=== PATIENT | female | born 1940 | race Caucasian/White ===

== ENCOUNTER → 2018-11-07 | Outpatient (CLI) | payer MEDICARE, BC ==
--- NOTE | 2018-11-08 07:53 | MM ---
Reason for exam: screening (asymptomatic). Last mammogram was performed 2 years and 4 months ago. History: Patient is postmenopausal. 2 benign excisional biopsies of the right breast. Took estrogen for 15 years beginning at age 52. Taking other hormone for 4 years 1 month beginning at age 62. Physical Findings: A clinical breast exam by your physician is recommended on an annual basis and results should be correlated with mammographic findings. MG Screening Mammo w CAD Bilateral CC and MLO view(s) were taken. Prior study comparison: July 15, 2016, bilateral MG 3d screening mammo w/cad. May 29, 2014, bilateral MG screening mammo w CAD. The breast tissue is heterogeneously dense. This may lower the sensitivity of mammography. There is no discrete abnormality. No significant changes when compared with prior studies. ASSESSMENT: Negative, BI-RAD 1 RECOMMENDATION: Routine screening mammogram of both breasts in 1 year.
== END | disposition home or self-care (01) ==
LOC: RADMAMWWP 09:54
PROVIDERS: ATTEND Internal Medicine
DX: Z12.31 Encounter for screening mammogram for malignant neoplasm of breast (principal)
CPT/HCPCS: 77067

== ENCOUNTER 2022-05-15 03:54 | Emergency (ER) | payer MEDICARE ==
[2022-05-15 04:29] VITALS: TEMP 98.6
[2022-05-15] MEDS ORDERED: KETOROLAC 15 MG/ML 1 ML VIAL IVP STA (04:42)
[2022-05-15] MEDS ORDERED: MORPHINE SULFATE 2 MG/ML SYRINGE IVP STA (04:42)
[2022-05-15] MEDS ORDERED: LIDOCAINE 1% INJ 10MG/ML (20 ML MDV) SQ ONE (05:04)
--- NOTE | 2022-05-15 05:30 | XR ---
EXAMINATION TYPE: XR wrist limited LT DATE OF EXAM: 05/15/2022 COMPARISON: NONE HISTORY: 2 views TECHNIQUE: 2 views FINDINGS: There is an acute impacted transverse fracture of the distal radius. There is osteopenia. N o dislocation. Metacarpals are intact. IMPRESSION: Acute impacted distal radius fracture.
[2022-05-15 06:22] VITALS: RESP 16
--- NOTE | 2022-05-15 06:33 | ED ---
General Adult HPI - General Chief complaint: Extremity Injury, Upper Stated complaint: Wrist Injury Time Seen by Provider: 05/15/22 04:25 Source: patient, RN notes reviewed, old records reviewed Mode of arrival: ambulatory Limitations: no limitations - History of Present Illness Initial comments: 81-year-old female presents status post fall. Patient had gotten up to shocked a door in the middle the night, she had tripped and fallen onto outstretched hand onto the left wrist. She is right handed. There is no head or neck trauma. No other injury. - Related Data Previous Rx's Medication Instructions Recorded HYDROcodone/APAP 5-325MG [[place] 1 tab PO Q6HR PRN #12 tab 05/15/22 5-325] Allergies Allergy/AdvReac Type Severity Reaction Status Date / Time Penicillins AdvReac Unknown Verified 05/15/22 04:30 Sulfa (Sulfonamide AdvReac Unknown Verified 05/15/22 04:30 Antibiotics) Childhood methiolate AdvReac Unknown Uncoded 05/15/22 04:30 Review of Systems ROS Statement: Those systems with pertinent positive or pertinent negative responses have been documented in the HPI. ROS Other: All systems not noted in ROS Statement are negative. Past Medical History Past Medical History: Thyroid Disorder Additional Past Medical History / Comment(s): tremors History of Any Multi-Drug Resistant Organisms: None Reported Past Surgical History: Section Past Psychological History: No Psychological Hx Reported Smoking Status: Never smoker Past Alcohol Use History: None Reported Past Drug Use History: None Reported General Exam General appearance: alert, in no apparent distress Head exam: Present: atraumatic, normocephalic Eye exam: Present: normal appearance, PERRL Respiratory exam: Present: normal lung sounds bilaterally. Absent: respiratory distress, wheezes Cardiovascular Exam: Present: regular rate, normal rhythm GI/Abdominal exam: Present: soft. Absent: distended, tenderness Extremities exam: Present: joint swelling (Deformity, ecchymosis to the left wrist, distal cap refill is intact, 2+ radial pulse, range of motion of the digits is within normal limits.) Neurological exam: Present: alert, oriented X3, CN II-XII intact Course Vital Signs 05/15/22 05/15/22 04:24 06:20 Temperature 98.6 F Pulse Rate 67 71 Respiratory 18 16 Rate Blood Pressure 127/89 O2 Sat by Pulse 98 94 L Oximetry Procedures - Orthopedic Fracture Reduction Fracture #1 Consent Obtained: verbal consent Side: left Fracture Reduction Location: radius Analgesia: hematoma block Technique: direct manipulation Post Reduction X-rays Demonstrate: acceptable reduction Post-Reduction Neuro Exam: intact Post-Reduction Vascular Exam: intact Splint Applied: Yes Patient Tolerated Procedure: well Medical Decision Making - Medical Decision Making 81-year-old female with mechanical fall, left wrist fracture. Significant deformity on exam, x-ray showing an impacted distal radius fracture. I was able to place the patient in a finger trap and provide pain medication. This did allow for significant improvement in alignment. She was placed in a splint and given orthopedic follow-up. She will call first thing in the morning. She will elevate and ice the wrist. Disposition Clinical Impression: Distal radial fracture Disposition: HOME SELF-CARE Condition: Fair Instructions (If sedation given, give patient instructions): Wrist Fracture in Adults (ED) Prescriptions: HYDROcodone/APAP 5-325MG [[place] 5-325] 1 tab PO Q6HR PRN #12 tab PRN Reason: Pain Is patient prescribed a controlled substance at d/c from ED?: No Referrals: Acacia Velazquez NPC [Primary Care Provider] - 1-2 days Jair Jones DO [Doctor of Osteopathic Medicine] - 1-2 days Time of Disposition: 06:32
--- NOTE | 2022-05-15 06:45 | XR ---
EXAMINATION TYPE: XR wrist limited LT DATE OF EXAM: 05/15/2022 COMPARISON: Today HISTORY: Post reduction TECHNIQUE: 2 views FINDINGS: 2 views were obtained through the cast and show reasonable anatomic reduction of the impact ed distal radius fracture. There is fairly good alignment. There is mild posterior displacement of th e distal radial fragment. There is ulnar styloid process fracture. IMPRESSION: Satisfactory reduction. No complicating process seen.
[2022-05-15 06:48] VITALS: BP 105/56; PULSE 72
== END 2022-05-15 07:05 | disposition home or self-care (01) ==
LOC: EC 03:54
DX: S52.512A Displaced fracture of left radial styloid process, initial encounter for closed fracture (principal); S52.502A Unspecified fracture of the lower end of left radius, initial encounter for closed fracture; Z88.8 Allergy status to other drugs, medicaments and biological substances; Z88.0 Allergy status to penicillin; Z88.2 Allergy status to sulfonamides; W01.0XXA Fall on same level from slipping, tripping and stumbling without subsequent striking against object, initial encounter
CPT/HCPCS: 73100; 99283; 25605; 96374; 96375; J2001; J2270; J1885

== ENCOUNTER → 2022-05-16 | Outpatient (CLI) | payer MEDICARE ==
[2022-05-16 15:54] LABS: Basophils # (A) 0.06 X 10*3/uL (0.00-0.10); Basophils % (A) 0.9 %; Eosinophils # (A) 0.09 X 10*3/uL (0.04-0.35); Eosinophils % (A) 1.4 %; HCT 40.4 % (37.2-46.3); HGB 13.4 g/dL (12.0-15.0); Immature Grans, Automated 0.2 %; Lymphocytes # (A) 1.33 X 10*3/uL (0.90-5.00); Lymphocytes % (A) 20.5 %; MCHC 33.2 g/dL (32.0-37.0); MCV 90.6 fL (80.0-97.0); Mean Platelet Volume 9.5 fL (9.5-12.2); Monocytes # (A) 0.48 X 10*3/uL (0.20-1.00); Monocytes % (A) 7.4 %; NRBC Per 100 WBC 0 /100 WBCS (0.0-0.0); Neutrophils # (A) 4.53 X 10*3/uL (1.80-7.70); Neutrophils % (A) 69.6 %; Platelet Count 263 X 10*3/uL (140-440); RBC 4.46 X 10*6/uL (4.10-5.20); RDW 12.9 % (11.5-14.5)
[2022-05-16 16:10] LABS: Anion Gap 10.8 mmol/L (10.00-18.00); Carbon Dioxide 25.8 mmol/L (20.0-27.5); Potassium 4.8 mmol/L (3.5-5.5)
== END | disposition home or self-care (01) ==
LOC: LABPAT 09:41
PROVIDERS: ATTEND Orthopaedic Surgery Hand Surgery
DX: Z01.812 Encounter for preprocedural laboratory examination (principal)
CPT/HCPCS: 80051; 85025; 93005

== ENCOUNTER 2022-05-21 09:46 | Day surgery (SDC) | payer MEDICARE ==
--- NOTE | 2022-05-20 22:04 | P.HPOR ---
History of Present Illness H&P Date: 05/20/22 Chief Complaint: Left distal radius fracture Subjective: This is a 81 year old female that presents today for initial evaluation regarding a left wrist injury that occurred when she fell on her porch after looking after her farm animals. She had pain and swelling immediately after and deformity. She was seen in the ED and placed in a splint. She has had pain since. Her injury was this morning on 05/15/22. She has some occasional paresthesias in the digits but states it is improving. Physical Examination: LUE: AIN/PIN/Radial/Ulnar/Median motor intact. Radial/Ulnar/Median SILT. 2+/4 Radial/Ulnar pulses palpated. 5/5 APB, 5/5 FDI. Negative Finkelsteins, negative CMC grind, negative Durkan's compression. Marked deformity of wrist with wrist held in extension with bruising/swelling present. EPL/FPL intact. Imaging: X-Rays of the left wrist demonstrate left intra-articular distal radius fracture with 45 degrees of dorsal angulation. Impression: 1.) Left intra-articular distal radius fracture, greater than 3 parts. Plan: Diagnosis and treatment options were discussed with the patient. We discussed at her age non operative treatment could be considered for her distal radius however she states due to her continued high activity demands and independence she would like to pursue surgery which I am agreeable with considering the amount of displacement and instability of the fracture. Risks and benefits of surgery including bleeding, infection, damage to surrounding tissue, need for further surgery, residual numbness were discussed and the patient wished to go forward with surgery. Left distal radius fracture ORIF is schedule for the near future, new splint is applied, PCP clearance is requested. -Jair Jones DO Orthopedic Hand/Upper Extremity Surgeon Past Medical History Past Medical History: Thyroid Disorder Additional Past Medical History / Comment(s): tremors History of Any Multi-Drug Resistant Organisms: None Reported Past Surgical History: Section Past Anesthesia/Blood Transfusion Reactions: No Reported Reaction Smoking Status: Never smoker Medications and Allergies Home Medications Medication Instructions Recorded Confirmed Type HYDROcodone/APAP 5-325MG [[place] 1 tab PO Q6HR PRN #12 tab 05/15/22 05/18/22 Rx 5-325] Fluticasone Nasal [place] [Flonase 50 mcg INHALATION DAILY PRN 05/18/22 05/18/22 History Nasal [place]] Propranolol [Inderal] 30 mg PO BID 05/18/22 05/18/22 History Thyroid,Pork [[place] Thyroid] 15 mg PO DAILY 05/18/22 05/18/22 History Thyroid,Pork [[place] Thyroid] 60 mg PO DAILY 05/18/22 05/18/22 History Allergies Allergy/AdvReac Type Severity Reaction Status Date / Time Penicillins AdvReac Severe Rash/Hives Verified 05/18/22 14:15 Sulfa (Sulfonamide AdvReac Unknown Unknown Verified 05/18/22 14:15 Antibiotics) Childhood methiolate AdvReac Unknown Unknown Uncoded 05/18/22 14:15 Physical Examination Osteopathic Statement: *. No significant issues noted on an osteopathic structural exam other than those noted in the History and Physical/Consult.
[2022-05-21] MEDS ORDERED: ONDANSETRON 4 MG/2 ML VIAL IVP ONE (10:09)
[2022-05-21] MEDS ORDERED: LACTATED RINGERS 1,000 ML IV SCH (10:09)
[2022-05-21 10:23] VITALS: RESP 16; TEMP 97.2
[2022-05-21] MEDS ORDERED: LIDOCAINE 1% (10MG/ML) FOR IV START INTRADERMA ONE (10:24)
[2022-05-21] MEDS ORDERED: MIDAZOLAM 2 MG/2 ML VIAL IV ONE (10:30)
[2022-05-21] MEDS ORDERED: fentaNYL (PF) 50 MCG/ML 2 ML AMP ONE (10:55)
[2022-05-21] MEDS ORDERED: ROPIVACAINE 5 MG/ML 30 ML VIAL ONE ×2 (10:55)
[2022-05-21] MEDS ORDERED: KETAMINE 10 MG/ML 20 ML VIAL ONE (10:55)
[2022-05-21] MEDS ORDERED: DEXAMETHASONE SOD PHOSPHATE 4 MG/ML 1 ML VIAL ONE ×2 (10:55)
[2022-05-21] MEDS ORDERED: PROPOFOL 10 MG/ML 20 ML VIAL IV ONE (10:55)
[2022-05-21 12:58] VITALS: BP 126/57; PULSE 63
[2022-05-22] MEDS ORDERED: HYDROmorphone 0.5 MG/0.5 ML SYRINGE IVP PRN (07:00)
--- NOTE | 2022-05-22 07:03 | P.OP ---
Date of Procedure: 05/21/22 Preoperative Diagnosis: 1.) Left intra-articular distal radius fracture Postoperative Diagnosis: 1.) Left intra-articular distal radius fracture Procedure(s) Performed: 1.) Left intra-articular distal radius fracture open reduction internal fixation, greater than 3 parts. Implants: [place]/Biomet DVR Crosslock distal radius plate, short/narrow Anesthesia: MAC, regional Surgeon: Jair Jones Estimated Blood Loss (ml): 15 Pathology: none sent Condition: stable Disposition: PACU Description of Procedure: This is a 81 year old female who sustained a displaced intra-articular distal radius fracture and presents today for open reduction internal fixation of their left distal radius fracture. Risks and benefits of surgery were discussed with the patient including bleeding, damage to surrounding tissue, infection, need for further surgery as well as risks of anesthesia including pulmonary embolism and even and the patient wished to proceed with surgical intervention. The patients was seen in the pre-operative area by myself. Consent and H&P were completed and updated. The correct extremity was marked in the pre-operative area by myself and all other questions were answered. Operative Narrative: The patient was brought to the operating room by the department of anesthesia. They remained on the portable stretcher and a rolling hand table was brought to the side of the operative extremity. Pre-operative time out was performed indicating the correct patient, procedure and laterality. All in the room agreed. Pre-operative antibiotics were given prior to skin incision. The patient was then drifted off to sleep by the department of anesthesia. A nonsterile tourniquet was then applied to the operative extremity and the left upper extremity was then prepped and draped in normal sterile fashion. The operative extremity was the exsanguinated with an esmarch bandage and the tourniquet was inflated to 250mmHg. A longitudinal incision centered over the FCR tendon was made with a 15-blade scalpel. Blunt dissection was taken down to the FCR tendon sheath using Bovie cautery for meticulous hemostasis. The FCR sheath was opened with tenotomy scissors. The floor of the FCR sheath was then incised with a 15-blade scalpel and the FPL tendon and muscle belly was swept bluntly in an ulnar direction to reveal the pronator quadratus. Pronator quadratus was sharply incised with a 15-blade scalpel along the radial border of the distal radius, coming across transversely parallel to the joint at the level of the watershed line, radial artery was identified and protected. Due to marked radial translation of the distal fragment the brachioradialis insertion was incised taking care to protect the first dorsal compartment tendons. Periosteal elevator was then used to elevate the pronator quadratus off the distal radius from a radial to ulnar fashion. A [place] elevator was used to lever the distal piece back into place and free up the fractured fragments. A short/narrow width Sidney/biomet crosslo ck DVR plate was chosen to fit the patients anatomy best. This was placed on the distal radius under direct visualization and the K- wire was placed in the shaft k-wire hole. The fracture was then reduced to the plate distally and a k- wire was placed in the ulnar most k-wire hole in the proximal row. Fluoroscopy was then utilized to confirm correct placement of plate in the radial/ulnar plane and distal k-wire placement was confirmed to be proximal to the subchondral bone on 20 degree elevated lateral view confirming extra-articular screw placement. Scientologist of radial height, inclination and volar tilt was achieved. The oblong hole was drilled and filled with a cortical screw. The proximal row and radial styloid screw hole was then drilled and filled from ulnar to radial with locking screws. Distal row was then drilled and filled with locking smooth pegs. Attention was then brought to the proximal shaft screws. Proximal crosslocking shaft screws were drilled with a nonlocking screws. The wrist joint was the ranged and full smooth flexion/extension with no crepitus appreciated. Final imaging was taken confirming extra-articular placement of distal screws at DRUJ and radiocarpal joint. The wound was then irrigated. Subcutaneous closure was performed with 3-0 vicryl followed by skin closure with 4-0 nylon suture. Sterile dressing consisting of adaptic,, 4x4s, and a volar plaster splint was applied. Tourniquet was let down and the hand had immediate perfusion. The patient was then woken by the department of anesthesia and transferred to PACU in stable condition. The patient was then woken by the department of anesthesia and transferred to PACU in stable condition. Sheldon DUCKWORTH was present for the case and assisted in major portions of the operation and hardware placement. Jair Jones D.O. Orthopedic Hand/Upper Extremity Surgeon
--- NOTE | 2022-05-24 19:21 | P.ANPRN ---
Procedure Note - Anesthesia - Nerve Block Performed Left Supraclavicular Single Time Out Performed: Yes Date of Procedure: 05/21/22 Procedure Start Time: 10:30 Procedure Stop Time: :34 Location of Patient: PreOp Indication: Acute Post-Operative Pain, Requested by Surgeon Sedation Type: Sedate with meaningful contact maintained Preparation: Sterile Prep Position: Supine Needle Types: [place]aj[place] Needle Gauge: 21 Ultrasound used to visualize needle placement: Yes Ultrasound used to observe medication spread: Yes Blood Aspirated: No Pain Paresthesia on Injection Noted: No Resistance on Injection: Normal Image Stored and Saved: Yes Events: Uneventful and Well Tolerated (ropi .5% 20cc plus dexamethasone 4mg)
== END 2022-05-21 13:29 | disposition home or self-care (01) ==
LOC: OR 09:46
PROVIDERS: ATTEND Orthopaedic Surgery Hand Surgery
DX: S52.572A Other intraarticular fracture of lower end of left radius, initial encounter for closed fracture (principal); W18.39XA Other fall on same level, initial encounter; E07.9 Disorder of thyroid, unspecified; R25.1 Tremor, unspecified; Z98.891 History of uterine scar from previous surgery; Z79.890 Hormone replacement therapy; Z79.899 Other long term (current) drug therapy; Z88.0 Allergy status to penicillin; Z88.2 Allergy status to sulfonamides; Z91.048 Other nonmedicinal substance allergy status
CPT/HCPCS: 25609; 64415; 76942; C1713 ×2; J2250; J1100; J0690; J2405; J3010; J2795; J2704

== ENCOUNTER 2023-07-15 16:56 | Emergency (ER) | payer MEDICARE ==
--- NOTE | 2023-07-15 17:38 | ED ---
General Adult HPI - General Chief complaint: Fall Stated complaint: Fall Time Seen by Provider: 07/15/23 17:08 Source: patient, EMS, RN notes reviewed Mode of arrival: EMS Limitations: no limitations - History of Present Illness Initial comments: Patient is a pleasant 82-year-old female presenting to the emergency department following head injury. Incident occurred the last day or 2. Patient states she tripped and fell and landed on her face. Patient denies loss of consciousness. Patient states minimal discomfort however was advised by her roommate to get evaluated. No neck or back pain. He should denies any new confusion and states she does have some chronic confusion. No chest pain. No abdominal pain - Related Data Home Medications Medication Instructions Recorded Confirmed Fluticasone Nasal [place] [Flonase 50 mcg INHALATION DAILY PRN 05/18/22 05/18/22 Nasal [place]] Propranolol [Inderal] 30 mg PO BID 05/18/22 05/18/22 Thyroid,Pork [[place] Thyroid] 15 mg PO DAILY 05/18/22 05/18/22 Thyroid,Pork [[place] Thyroid] 60 mg PO DAILY 05/18/22 05/18/22 Previous Rx's Medication Instructions Recorded HYDROcodone/APAP 5-325MG [[place] 1 tab PO Q6HR PRN #12 tab 05/15/22 5-325] Allergies Allergy/AdvReac Type Severity Reaction Status Date / Time Penicillins AdvReac Severe Rash/Hives Verified 07/15/23 17:17 Sulfa (Sulfonamide AdvReac Unknown Unknown Verified 07/15/23 17:17 Antibiotics) Childhood methiolate AdvReac Unknown Unknown Uncoded 07/15/23 17:17 Review of Systems ROS Statement: Those systems with pertinent positive or pertinent negative responses have been documented in the HPI. ROS Other: All systems not noted in ROS Statement are negative. Constitutional: Denies: fever Eyes: Denies: eye pain ENT: Denies: ear pain Respiratory: Denies: cough Cardiovascular: Denies: chest pain Endocrine: Denies: fatigue Gastrointestinal: Denies: abdominal pain Genitourinary: Denies: urgency Musculoskeletal: Reports: as per HPI. Denies: back pain Neurological: Reports: as per HPI. Denies: headache, weakness Past Medical History Past Medical History: Thyroid Disorder Additional Past Medical History / Comment(s): tremors History of Any Multi-Drug Resistant Organisms: None Reported Past Surgical History: Section Past Anesthesia/Blood Transfusion Reactions: No Reported Reaction Past Psychological History: No Psychological Hx Reported Smoking Status: Never smoker General Exam Limitations: no limitations General appearance: alert, in no apparent distress Head exam: Present: normocephalic, other (Ecchymosis to the forehead and nasal region) Eye exam: Present: normal appearance, PERRL, EOMI ENT exam: Present: normal oropharynx Neck exam: Present: normal inspection. Absent: tenderness Respiratory exam: Present: normal lung sounds bilaterally Cardiovascular Exam: Present: regular rate, normal rhythm GI/Abdominal exam: Present: soft. Absent: tenderness Extremities exam: Present: normal inspection, full ROM. Absent: tenderness Neurological exam: Present: alert, CN II-XII intact. Absent: motor sensory deficit Expanded Neurological exam: Present: protecting the airway Patient oriented to: Present: person, place. Absent: time Speech: Present: fluid speech Cranial nerves: EOM's Intact: Normal Sensory exam: Upper Extremity Light Touch: Normal, Lower Extremity Light Touch: Normal Motor strength exam: RUE: 5, LUE: 5, RLE: 5, LLE: 5 Eye Response: (4) open spontaneously Motor Response: (6) obeys commands Verbal Response: (5) oriented Psychiatric exam: Present: normal affect, normal mood Skin exam: Present: normal color Course Vital Signs 07/15/23 17:08 Temperature 98.9 F Pulse Rate 84 Respiratory 18 Rate Blood Pressure 125/77 O2 Sat by Pulse 97 Oximetry Medical Decision Making - Medical Decision Making Was pt. sent in by a medical professional or institution (, PA, SHIPPING RECEIVING MANAGER, urgent care, hospital, or senior care...) When possible be specific @ -No Did you speak to anyone other than the patient for history (EMS, parent, family, police, friend...)? What history was obtained from this source @ -No Did you review nursing and triage notes (agree or disagree)? Why? @ -I reviewed and agree with nursing and triage notes Were old charts reviewed (outside hosp., previous admission, EMS record, old EKG, old radiological studies, urgent care reports/EKG's, senior care records)? Report findings @ -No old charts were reviewed Differential Diagnosis (chest pain, altered mental status, abdominal pain women, abdominal pain men, vaginal bleeding, weakness, fever, dyspnea, syncope, headache, dizziness, GI bleed, back pain, seizure, CVA, palpatations, mental health, musculoskeletal)? @ -Differential Musculoskeletal Muscular strain, contusion, ligament sprain, fracture, arthritis, septic arthritis, bursitis, cellulitis, muscle spasm, nerve compression, DVT, arterial occlusion, herpes zoster, electrolyte abnormality, tumor.... This is not meant to be in all inclusive list EKG interpreted by me (3pts min.). @ -As above X-rays interpreted by me (1pt min.). @ -None done CT interpreted by me (1pt min.). @ -CT brain and C-spine without obvious hemorrhage or fracture U/S interpreted by me (1pt. min.). @ -None done What testing was considered but not performed or refused? (CT, X-rays, U/S, labs)? Why? @ -None What meds were considered but not given or refused? Why? @ -None Did you discuss the management of the patient with other professionals (professionals i.e. , PA, SHIPPING RECEIVING MANAGER, lab, RT, psych nurse, social media editor, lap welder, teacher, hearing officer, assistant case manager)? Give summary @ -No Was smoking cessation discussed for >3mins.? @ -No Was critical care preformed (if so, how long)? @ -No Were there social determinants of health that impacted care today? How? (Homelessness, low income, unemployed, alcoholism, drug addiction, transportation, low edu. Level, literacy, decrease access to med. care, senior care, rehab)? @ -No Was there de-escalation of care discussed even if they declined (Discuss DNR or withdrawal of care, Hospice)? DNR status @ -No What co-morbidities impacted this encounter? (DM, HTN, Smoking, COPD, CAD, Cancer, CVA, ARF, Chemo, Hep., AIDS, mental health diagnosis, sleep apnea, morbid obesity)? @ -None Was patient admitted / discharged? Hospital course, mention meds given and route, prescriptions, significant lab abnormalities, going to OR and other pertinent info. @ -Patient reevaluated. Patient and friend are updated on results and follow- up. Patient is happy to be discharged. Undiagnosed new problem with uncertain prognosis? @ -No Drug Therapy requiring intensive monitoring for toxicity (Heparin, Nitro, Insulin, Cardizem)? @ -No Were any procedures done? @ -No Diagnosis/symptom? @ -Head injury Acute, or Chronic, or Acute on Chronic? @ -Acute Uncomplicated (without systemic symptoms) or Complicated (systemic symptoms)? @ -default Side effects of treatment? @ -No Exacerbation, Progression, or Severe Exacerbation? @ -No Poses a threat to life or bodily function? How? (Chest pain, [place], CA, pneumonia, PE, COPD, DKA, ARF, appy, cholecystitis, CVA, Diverticulitis, Homicidal, Suicidal, threat to staff... and all critical care pts) @ -No Disposition Clinical Impression: Fall, Head injury Disposition: HOME SELF-CARE Condition: Stable Instructions (If sedation given, give patient instructions): Fall Prevention (ED), Head Injury (ED) Additional Instructions: [id number] Tylenol if needed. Ice to affected area. Please follow-up with primary care physician in the next couple days for recheck. Return for confusion, weakness, worsening or changing symptoms or other concerns. Is patient prescribed a controlled substance at d/c from ED?: No Referrals: Luiz Tee MD [STAFF PHYSICIAN] - 1-2 days Time of Disposition: 19:01
--- NOTE | 2023-07-15 18:30 | CT ---
EXAMINATION TYPE: CT brain nik werner DATE OF EXAM: 07/15/2023 COMPARISON: NONE HISTORY: Fall last night, fell on face. Pt denies LOC and denies thinners. Pt has some dizziness sinc e fall. Pt has abrasion to forehead and nose. No active bleeding. Bruising around eyes. Pt unsure of year today and year of . CT DLP: 1228.3 mGycm. Automated Exposure Control for Dose Reduction was Utilized. TECHNIQUE: CT scan of the head and cervical spine are performed without contrast. FINDINGS: There is no acute intracranial hemorrhage, mass effect, or midline shift identified. No def inite new attenuation defect. The ventricles and sulci are within normal limits in size. The globes are intact and the paranasal sinuses, middle ear cavities, and mastoid sinus air cells are clear. No skull fracture. Cervical spine is visualized in its entirety from C1 through upper thoracic levels and demonstrates s atisfactory alignment without evidence of acute fracture or acute malalignment. Prevertebral soft ti ssue appears within normal limits. Prominent multilevel cervical spondylosis changes noted. The C1-C2 articulation is unremarkable. IMPRESSION: 1. There is no acute fracture or dislocation evident in the cervical spine. 2. No acute intracranial hemorrhage, mass effect, or midline shift is seen.
[2023-07-15 19:55] VITALS: BP 122/68; PULSE 81; RESP 17; TEMP 98
== END 2023-07-15 19:39 | disposition home or self-care (01) ==
LOC: EC 16:56
DX: S00.83XA Contusion of other part of head, initial encounter (principal); S00.33XA Contusion of nose, initial encounter; E07.9 Disorder of thyroid, unspecified; Z79.890 Hormone replacement therapy; Z88.0 Allergy status to penicillin; Z88.2 Allergy status to sulfonamides; Z88.8 Allergy status to other drugs, medicaments and biological substances; W01.0XXA Fall on same level from slipping, tripping and stumbling without subsequent striking against object, initial encounter
CPT/HCPCS: 70450; 72125; 99284